=== PATIENT | male | born 1940 | race Caucasian/White ===

== ENCOUNTER 2024-07-14 14:04 | Inpatient (IN) | payer OTHER ==
[2024-07-14] MEDS: SODIUM CHLORIDE 0.9% 500 ML INFUS.BAG IV ONE (16:40)
[2024-07-14 17:51] LABS: BASO % 0.5 % (0-2.0); HEMATOCRIT 45.3 % (35.4-49); HEMOGLOBIN 15.3 GM/dL (11.7-16.9); LYMPH % 2.7 % (8-40); MCH 30.5 pg (25.7-33.7); MCHC 33.7 g/dl (32.0-35.9); MEAN CELL VOLUME 90.5 fl (80-96); MEAN PLT VOLUME 8.9 fl (7.5-11.1); MONO % 6.5 % (3.8-10.2); NEUT % 90.3 % (42.8-82.8); PLATELET COUNT 338 10^3/uL (134-434); RBC 5.01 M/mm3 (4.00-5.60); VENOUS BASE EXCESS -8.3 mmol/L (-2-2); VENOUS O2 SATURATION 55.2 % (70-80); VENOUS PCO2 37.9 mmHg (38-52); VENOUS PH 7.284 (7.310-7.410)
[2024-07-14 18:13] LABS: POTASSIUM 5.2 mmol/L (3.5-5.1)
[2024-07-14 18:14] LABS: ALBUMIN 2.6 g/dl (3.4-5.0); BLOOD UREA NITROGEN 103.4 mg/dL (7-18); CALCIUM 9.3 mg/dL (8.5-10.1)
[2024-07-14 18:18] LABS: CREATININE 2.4 mg/dL (0.55-1.3)
[2024-07-14 18:20] LABS: BILIRUBIN,TOTAL 0.7 mg/dL (0.2-1)
[2024-07-14 18:23] LABS: ANISOCYTOSIS 2+; LACTIC ACID 2.4 mmol/L (0.4-2.0); MACROCYTOSIS 0; OVALOCYTE 1+
[2024-07-14] MEDS ORDERED: PIPERACILLIN/TAZOB 4.5 GM 4.5 GM/100 ML BAG IVPB ONE (18:27)
[2024-07-14] MEDS: PIPERACILLIN/TAZOB 4.5 GM 4.5 GM in DEXTROSE 5%-WATER 100 ML IVPB ONE (20:04)
[2024-07-14] MEDS: VANCOMYCIN PREMIX 1.5 GM 1,500 MG/300 ML BAG IVPB ONE (22:34)
[2024-07-15] MEDS: VANCOMYCIN HCL 1,500 MG in DEXTROSE 5%-WATER - 500 ML IVPB ONE (00:09)
[2024-07-15 01:24] LABS: EPI CELLS 0 /uL (0-25.1); HYALINE CASTS 0 /uL (0-3.1); URINE APPEARANCE CLEAR; URINE BACTERIA 0 /uL (0-1359); URINE BILIRUBIN NEGATIVE (NEGATIVE); URINE COLOR YELLOW; URINE GLUCOSE (UA) NEGATIVE (NEGATIVE); URINE KETONE NEGATIVE (NEGATIVE); URINE LEUK ESTERASE NEGATIVE (NEGATIVE); URINE NITRITE NEGATIVE (NEGATIVE); URINE PROTEIN NEGATIVE (NEGATIVE); URINE RBC 84 /uL (0-23.9); URINE UROBILINOGEN 0.2 mg/dL (0.2-1.0); URINE WBC 1 /uL (0-25.8)
[2024-07-15 01:58] LABS: HEMATOCRIT 44.5 % (35.4-49); HEMOGLOBIN 14.5 GM/dL (11.7-16.9); MCH 29.8 pg (25.7-33.7); MCHC 32.5 g/dl (32.0-35.9); MEAN CELL VOLUME 91.4 fl (80-96); MEAN PLT VOLUME 9.1 fl (7.5-11.1); PLATELET COUNT 278 10^3/uL (134-434); RBC 4.87 M/mm3 (4.00-5.60); RDW 16.3 % (11.9-15.9)
[2024-07-15 02:13] LABS: WHITE BLOOD COUNT 38.7 K/mm3 (4.0-10.0)
[2024-07-15 03:15] LABS: ANISOCYTOSIS 0; MACROCYTOSIS 0; OVALOCYTE 1+
[2024-07-15] MEDS: SODIUM CHLORIDE 1,000 ML IV STA ×2 (05:04→11:34)
[2024-07-15] MEDS: DEXTROSE 5%-0.45% SALINE 1,000 ML IV SCH ×2 (07:24→16:28)
[2024-07-15 08:07] LABS: HEMATOCRIT 41.5 % (35.4-49); HEMOGLOBIN 13.3 GM/dL (11.7-16.9); MCH 29.6 pg (25.7-33.7); MCHC 32.1 g/dl (32.0-35.9); MEAN CELL VOLUME 92.2 fl (80-96); MEAN PLT VOLUME 9.6 fl (7.5-11.1); PLATELET COUNT 288 10^3/uL (134-434); RBC 4.49 M/mm3 (4.00-5.60)
[2024-07-15 08:17] LABS: WHITE BLOOD COUNT 31.7 K/mm3 (4.0-10.0)
[2024-07-15 08:20] LABS: POTASSIUM 4.5 mmol/L (3.5-5.1)
[2024-07-15 08:24] LABS: BLOOD UREA NITROGEN 92.7 mg/dL (7-18); CALCIUM 8.8 mg/dL (8.5-10.1)
[2024-07-15 08:27] LABS: CREATININE 2.2 mg/dL (0.55-1.3)
[2024-07-15 08:28] LABS: BILIRUBIN,TOTAL 0.8 mg/dL (0.2-1)
[2024-07-15 08:31] LABS: LACTIC ACID 2.2 mmol/L (0.4-2.0)
[2024-07-15 09:34] LABS: ANISOCYTOSIS 0; MACROCYTOSIS 0
[2024-07-15] MEDS ORDERED: PIPERACILLIN/TAZOB 4.5 GM 4.5 GM/100 ML BAG IVPB ONE (09:48)
[2024-07-15] MEDS: PIPERACILLIN/TAZOB 4.5 GM 4.5 GM in DEXTROSE 5%-WATER 100 ML IVPB SCH ×2 (09:58→16:39)
[2024-07-15] MEDS: SODIUM CHLORIDE 500 ML IV STA (14:42)
[2024-07-15] MEDS ORDERED: ACETAMINOPHEN INJECTION 100 ML ONE (16:20)
[2024-07-15] MEDS: ACETAMINOPHEN 1000 MG/100 ML BAG IVPB PRN (16:23)
[2024-07-15] MEDS ORDERED: VANCOMYCIN/WATER FOR INJ (PEG) 1,000 MG/200 ML BAG IVPB SCH (18:00)
[2024-07-15] MEDS ORDERED: PIPERACILLIN/TAZOB 3.375 GM 3.375 GM/50 ML BAG IVPB ONE (18:02)
[2024-07-15] MEDS: PIPERACILLIN/TAZOB 3.375 GM 3.375 GM in DEXTROSE 5%-WATER - 50 ML IVPB SCH (18:08)
[2024-07-15 21:23] LABS: HEMATOCRIT 40.6 % (35.4-49); HEMOGLOBIN 13.4 GM/dL (11.7-16.9); MCH 30.1 pg (25.7-33.7); MEAN CELL VOLUME 91.2 fl (80-96); MEAN PLT VOLUME 9.2 fl (7.5-11.1); PLATELET COUNT 290 10^3/uL (134-434); RBC 4.46 M/mm3 (4.00-5.60); RDW 16.6 % (11.9-15.9); WHITE BLOOD COUNT 23.1 K/mm3 (4.0-10.0)
[2024-07-15 21:50] LABS: POTASSIUM 3.8 mmol/L (3.5-5.1)
[2024-07-15 21:52] LABS: BLOOD UREA NITROGEN 78.2 mg/dL (7-18); CALCIUM 8.5 mg/dL (8.5-10.1)
[2024-07-15 21:55] LABS: CREATININE 1.8 mg/dL (0.55-1.3)
[2024-07-15] MEDS ORDERED: VANCOMYCIN 1,000 MG in DEXTROSE 5%-WATER - 250 ML IVPB SCH (22:00)
[2024-07-15 22:54] LABS: ANISOCYTOSIS 2+; MACROCYTOSIS 0
[2024-07-16 08:43] LABS: POTASSIUM 3.5 mmol/L (3.5-5.1)
[2024-07-16 08:46] LABS: ALBUMIN 1.8 g/dl (3.4-5.0); BLOOD UREA NITROGEN 66.1 mg/dL (7-18); CALCIUM 8.7 mg/dL (8.5-10.1)
[2024-07-16 08:50] LABS: CREATININE 1.6 mg/dL (0.55-1.3); PHOSPHOROUS 3.4 mg/dL (2.5-4.9)
[2024-07-16 08:52] LABS: BILIRUBIN,TOTAL 0.5 mg/dL (0.2-1)
[2024-07-16] MEDS: D5-1/2NS+10 MEQ KCL - 10 MEQ/1,000 ML INFUS.BAG IV SCH (17:44)
[2024-07-16] MEDS: HEPARIN NA (PORCINE) 5,000 UNITS/ML 1ML VIAL SQ SCH (21:59)
[2024-07-17 09:44] LABS: POTASSIUM 3.9 mmol/L (3.5-5.1)
[2024-07-17 09:47] LABS: ALBUMIN 1.5 g/dl (3.4-5.0); CALCIUM 8.6 mg/dL (8.5-10.1)
[2024-07-17 09:48] LABS: BLOOD UREA NITROGEN 58.7 mg/dL (7-18)
[2024-07-17 09:50] LABS: CREATININE 1.5 mg/dL (0.55-1.3)
[2024-07-17 09:52] LABS: BILIRUBIN,TOTAL 0.5 mg/dL (0.2-1); TOT PROT 4.5 g/dl (6.4-8.2)
[2024-07-17 12:14] VITALS: BMI 23.1
[2024-07-17 13:06] LABS: HEMATOCRIT 38.6 % (35.4-49); HEMOGLOBIN 12.7 GM/dL (11.7-16.9); MCH 29.8 pg (25.7-33.7); MCHC 32.8 g/dl (32.0-35.9); MEAN CELL VOLUME 90.9 fl (80-96); MEAN PLT VOLUME 9.8 fl (7.5-11.1); PLATELET COUNT 309 10^3/uL (134-434); RBC 4.25 M/mm3 (4.00-5.60); RDW 16.4 % (11.9-15.9); WHITE BLOOD COUNT 24.9 K/mm3 (4.0-10.0)
[2024-07-17 13:27] LABS: ANISOCYTOSIS 0; MACROCYTOSIS 0
[2024-07-17 13:45] LABS: POTASSIUM 3.6 mmol/L (3.5-5.1)
[2024-07-17 13:47] LABS: BLOOD UREA NITROGEN 55.2 mg/dL (7-18)
[2024-07-17 14:34] LABS: CREATININE 1.4 mg/dL (0.55-1.3)
[2024-07-17] MEDS: POTASSIUM CHLORIDE 10 MEQ in DEXTROSE 5%-WATER - 1,000 ML IV SCH (18:02)
[2024-07-18 08:52] LABS: CHLORIDE 112 mmol/L (98-107); POTASSIUM 4.7 mmol/L (3.5-5.1); SODIUM 136 mmol/L (136-145)
[2024-07-18 08:54] LABS: CALCIUM 7.7 mg/dL (8.5-10.1)
[2024-07-18 08:55] LABS: ALBUMIN 1.2 g/dl (3.4-5.0); ANION GAP 5 mmol/L (4-13); BLOOD UREA NITROGEN 52.5 mg/dL (7-18); CO2 19 mmol/L (21-32)
[2024-07-18 08:58] LABS: CREATININE 1.5 mg/dL (0.55-1.3); SGOT/AST 225 U/L (15-37); SGPT/ALT 186 U/L (13-61)
[2024-07-18 08:59] LABS: BILIRUBIN,TOTAL 0.4 mg/dL (0.2-1); TOT PROT 3.7 g/dl (6.4-8.2)
[2024-07-18 09:01] LABS: ALK PHOS 230 U/L (45-117)
[2024-07-18 09:06] LABS: GLUCOSE,RANDOM 688 mg/dL (74-106)
[2024-07-18 09:26] LABS: BASO % 0.1 % (0-2.0); EOS % 1.2 % (0-4.5); LYMPH % 8.8 % (8-40); MCH 29.2 pg (25.7-33.7); MCHC 28.9 g/dl (32.0-35.9); MEAN CELL VOLUME 101.1 fl (80-96); MEAN PLT VOLUME 10.4 fl (7.5-11.1); MONO % 4.8 % (3.8-10.2); NEUT % 85.1 % (42.8-82.8); PLATELET COUNT 182 10^3/uL (134-434); RBC 3.07 M/mm3 (4.00-5.60); RDW 18.9 % (11.9-15.9)
[2024-07-18 09:29] LABS: HEMATOCRIT 30.6 % (35.4-49)
[2024-07-18 09:38] LABS: ANISOCYTOSIS 0; MACROCYTOSIS 1+
[2024-07-18] MEDS: levETIRAcetam 500 MG/5 ML INJECTION VIAL IVPB SCH (11:24)
[2024-07-18] MEDS: ACETAMINOPHEN 1000 MG/100 ML BAG IVPB PRN (11:54)
[2024-07-18 14:10] LABS: BASO % 0.3 % (0-2.0); EOS % 1.1 % (0-4.5); HEMATOCRIT 33.5 % (35.4-49); HEMOGLOBIN 10.6 GM/dL (11.7-16.9); LYMPH % 14.9 % (8-40); MCH 29.1 pg (25.7-33.7); MCHC 31.5 g/dl (32.0-35.9); MEAN CELL VOLUME 92.2 fl (80-96); MEAN PLT VOLUME 9.7 fl (7.5-11.1); MONO % 3.8 % (3.8-10.2); NEUT % 79.9 % (42.8-82.8); PLATELET COUNT 293 10^3/uL (134-434); RBC 3.63 M/mm3 (4.00-5.60); RDW 16.6 % (11.9-15.9); WHITE BLOOD COUNT 22.3 K/mm3 (4.0-10.0)
[2024-07-18 14:28] LABS: BLOOD UREA NITROGEN 63.6 mg/dL (7-18)
[2024-07-18 14:30] LABS: ALBUMIN 1.6 g/dl (3.4-5.0)
[2024-07-18 14:31] LABS: ANISOCYTOSIS 0; CREATININE 1.4 mg/dL (0.55-1.3); MACROCYTOSIS 0
[2024-07-18 14:33] LABS: BILIRUBIN,TOTAL 0.7 mg/dL (0.2-1); TOT PROT 4.8 g/dl (6.4-8.2)
[2024-07-18 14:46] LABS: POTASSIUM 3.8 mmol/L (3.5-5.1)
[2024-07-19 08:43] LABS: HEMATOCRIT 36.6 % (35.4-49); HEMOGLOBIN 12.1 GM/dL (11.7-16.9); MCH 30.2 pg (25.7-33.7); MEAN CELL VOLUME 91.5 fl (80-96); MEAN PLT VOLUME 9.7 fl (7.5-11.1); PLATELET COUNT 220 10^3/uL (134-434); RDW 17.1 % (11.9-15.9); WHITE BLOOD COUNT 20.6 K/mm3 (4.0-10.0)
[2024-07-19 08:51] LABS: POTASSIUM 4.5 mmol/L (3.5-5.1)
[2024-07-19 08:57] LABS: CALCIUM 8.5 mg/dL (8.5-10.1)
[2024-07-19 08:58] LABS: ALBUMIN 1.5 g/dl (3.4-5.0); BLOOD UREA NITROGEN 54.5 mg/dL (7-18)
[2024-07-19 08:59] LABS: CREATININE 1.2 mg/dL (0.55-1.3)
[2024-07-19 09:01] LABS: BILIRUBIN,TOTAL 0.6 mg/dL (0.2-1); TOT PROT 4.6 g/dl (6.4-8.2)
[2024-07-19 09:47] LABS: ANISOCYTOSIS 0; HELMET CELLS 0; HOWELL-JOLLY BODIES 0; MACROCYTOSIS 0; OVALOCYTE 0; ROULEAU 0; SICKELED CELLS 0; TARGET CELLS 0; TEAR DROP CELLS 0; TOXIC GRANULATION 0
[2024-07-20 08:26] LABS: HEMATOCRIT 35.7 % (35.4-49); HEMOGLOBIN 11.9 GM/dL (11.7-16.9); MCH 30.5 pg (25.7-33.7); MCHC 33.4 g/dl (32.0-35.9); MEAN CELL VOLUME 91.3 fl (80-96); MEAN PLT VOLUME 9.7 fl (7.5-11.1); PLATELET COUNT 196 10^3/uL (134-434); RBC 3.91 M/mm3 (4.00-5.60); WHITE BLOOD COUNT 22.8 K/mm3 (4.0-10.0)
[2024-07-20 08:41] LABS: POTASSIUM 5.3 mmol/L (3.5-5.1)
[2024-07-20 08:47] LABS: ALBUMIN 1.6 g/dl (3.4-5.0); BLOOD UREA NITROGEN 50.4 mg/dL (7-18); CALCIUM 8.8 mg/dL (8.5-10.1)
[2024-07-20 08:52] LABS: BILIRUBIN,TOTAL 0.9 mg/dL (0.2-1); TOT PROT 4.9 g/dl (6.4-8.2)
[2024-07-20] MEDS: PANTOPRAZOLE SODIUM 40 MG VIAL IVPUSH SCH (09:32)
[2024-07-20 10:02] LABS: ANISOCYTOSIS 0; HELMET CELLS 0; HOWELL-JOLLY BODIES 0; MACROCYTOSIS 0; OVALOCYTE 0; ROULEAU 0; SICKELED CELLS 0; TARGET CELLS 0; TEAR DROP CELLS 0; TOXIC GRANULATION 0
[2024-07-20] MEDS: DEXTROSE 5%-0.45% SALINE 1,000 ML IV SCH (17:36)
[2024-07-21 11:57] LABS: HEMATOCRIT 35.9 % (35.4-49); HEMOGLOBIN 11.5 GM/dL (11.7-16.9); MCH 29.7 pg (25.7-33.7); MEAN CELL VOLUME 92.6 fl (80-96); PLATELET COUNT 143 10^3/uL (134-434); RBC 3.87 M/mm3 (4.00-5.60); RDW 16.6 % (11.9-15.9)
[2024-07-21 12:15] LABS: BLOOD UREA NITROGEN 29.8 mg/dL (7-18); CALCIUM 8.4 mg/dL (8.5-10.1)
[2024-07-21 12:19] LABS: CREATININE 0.9 mg/dL (0.55-1.3)
[2024-07-21 12:22] LABS: ANISOCYTOSIS 0; MACROCYTOSIS 0
[2024-07-21 22:29] LABS: ARTERIAL BLD GAS O2 SATURATION 96.4 % (95-98); ARTERIAL BLOOD GAS BASE EXCESS -4.1 mmol/L (-2-2); ARTERIAL BLOOD GAS PO2 79.9 mmHg (80-100)
[2024-07-21 22:39] LABS: ALLENS TEST POSITIVE
[2024-07-21] MEDS: ACETAMINOPHEN 1000 MG/100 ML BAG IVPB ONE (22:44)
[2024-07-21 23:11] LABS: EPI CELLS 7 /uL (0-25.1); HYALINE CASTS 1 /uL (0-3.1); PH,URINE 5.5 (5.0-8.0); URINE APPEARANCE CLOUDY; URINE BACTERIA 2 /uL (0-1359); URINE BILIRUBIN NEGATIVE (NEGATIVE); URINE COLOR DK YELLOW; URINE GLUCOSE (UA) NEGATIVE (NEGATIVE); URINE KETONE NEGATIVE (NEGATIVE); URINE LEUK ESTERASE TRACE (NEGATIVE); URINE NITRITE NEGATIVE (NEGATIVE); URINE PROTEIN 1+ (NEGATIVE); URINE UROBILINOGEN 0.2 mg/dL (0.2-1.0); URINE WBC 43 /uL (0-25.8)
[2024-07-21 23:14] LABS: URINE RBC 408.3 /uL (0-23.9)
[2024-07-22] MEDS: MEROPENEM 1 GM in DEXTROSE 5%-WATER 100 ML IVPB ONE (02:06)
[2024-07-22] MEDS: VANCOMYCIN/WATER FOR INJ (PEG) 1,000 MG/200 ML BAG IVPB ONE (02:06)
[2024-07-22] MEDS: FENTANYL CITRATE/PF 50 MCG/ML VIAL IVPUSH ONE (02:24)
[2024-07-22 06:53] LABS: HEMATOCRIT 33.2 % (35.4-49); HEMOGLOBIN 10.6 GM/dL (11.7-16.9); MCH 29.4 pg (25.7-33.7); MEAN CELL VOLUME 91.8 fl (80-96); MEAN PLT VOLUME 9.7 fl (7.5-11.1); PLATELET COUNT 194 10^3/uL (134-434); RBC 3.61 M/mm3 (4.00-5.60)
[2024-07-22 07:00] LABS: INR 2.49 (0.83-1.09); PROTHROMBIN TIME (PATIENT) 27.9 SEC (9.7-13.0)
[2024-07-22 07:10] LABS: POTASSIUM 3.8 mmol/L (3.5-5.1)
[2024-07-22 07:17] LABS: ALBUMIN 1.4 g/dl (3.4-5.0); BLOOD UREA NITROGEN 31.8 mg/dL (7-18); CALCIUM 7.8 mg/dL (8.5-10.1); MAGNESIUM 1.4 mg/dL (1.8-2.4)
[2024-07-22 07:18] LABS: PHOSPHOROUS 2.7 mg/dL (2.5-4.9)
[2024-07-22 07:24] LABS: TOT PROT 4.4 g/dl (6.4-8.2); WHITE BLOOD COUNT 38.9 K/mm3 (4.0-10.0)
[2024-07-22 09:12] LABS: ANISOCYTOSIS 2+; MACROCYTOSIS 0
[2024-07-22] MEDS: MUPIROCIN 2% TOPICAL OINTMENT FOR DECOLONIZATION NS SCH (09:25)
[2024-07-22] MEDS: DEXAMETHASONE SOD PHOSPHATE 4 MG/1 ML VIAL IVPUSH SCH (11:02)
[2024-07-22] MEDS: REMDESIVIR 200 MG in SODIUM CHLORIDE 250 ML IVPB ONE (13:50)
[2024-07-22] MEDS: PIPERACILLIN/TAZOB 3.375 GM 3.375 GM in DEXTROSE 5%-WATER - 50 ML IVPB SCH (13:50)
[2024-07-22] MEDS: CHLORHEXIDINE GLUCONATE 4% CLEANSER FOR DECOLONIZATION TP SCH (21:37)
[2024-07-23] MEDS: ACETAMINOPHEN 1000 MG/100 ML BAG IVPB PRN (03:07)
[2024-07-23 06:47] LABS: HEMATOCRIT 30.1 % (35.4-49); HEMOGLOBIN 9.6 GM/dL (11.7-16.9); MCH 29.6 pg (25.7-33.7); MCHC 32.1 g/dl (32.0-35.9); MEAN CELL VOLUME 92.3 fl (80-96); MEAN PLT VOLUME 10.4 fl (7.5-11.1); PLATELET COUNT 208 10^3/uL (134-434); RBC 3.26 M/mm3 (4.00-5.60); RDW 16.1 % (11.9-15.9); WHITE BLOOD COUNT 49.9 K/mm3 (4.0-10.0)
[2024-07-23 06:59] LABS: POTASSIUM 3.8 mmol/L (3.5-5.1)
[2024-07-23 07:04] LABS: ALBUMIN 1.4 g/dl (3.4-5.0)
[2024-07-23 07:05] LABS: MAGNESIUM 1.4 mg/dL (1.8-2.4)
[2024-07-23 07:09] LABS: TOT PROT 4.6 g/dl (6.4-8.2)
[2024-07-23 07:37] LABS: BILIRUBIN,TOTAL 0.6 mg/dL (0.2-1)
[2024-07-23] MEDS ORDERED: ALBUTEROL SO4 2.5/IPRATROPIUM 0.5 INH SOL 3 ML VIAL.NEB. NEB PRN (10:17)
[2024-07-23] MEDS: ALBUTEROL SO4 2.5/IPRATROPIUM 0.5 INH SOL 3 ML VIAL.NEB. NEB SCH (11:55)
[2024-07-23] MEDS ORDERED: REMDESIVIR 100 MG in SODIUM CHLORIDE 250 ML IVPB SCH (12:00)
[2024-07-23] MEDS: REMDESIVIR 100 MG in SODIUM CHLORIDE 250 ML IVPB SCH (12:14)
[2024-07-23] MEDS: AMINO ACIDS 4.25%/D5W 1,000 ML IV SCH (14:31)
[2024-07-23] MEDS: MAGNESIUM SULFATE IN WATER 2 GM/50 ML IVPB IVPB ONE (23:09)
[2024-07-24 08:32] LABS: HEMATOCRIT 24.1 % (35.4-49); HEMOGLOBIN 7.9 GM/dL (11.7-16.9); MCH 29.7 pg (25.7-33.7); MCHC 32.8 g/dl (32.0-35.9); MEAN CELL VOLUME 90.4 fl (80-96); MEAN PLT VOLUME 10.1 fl (7.5-11.1); PLATELET COUNT 249 10^3/uL (134-434); RBC 2.66 M/mm3 (4.00-5.60); RDW 16.3 % (11.9-15.9)
[2024-07-24 08:42] LABS: WHITE BLOOD COUNT 39.1 K/mm3 (4.0-10.0)
[2024-07-24 08:48] LABS: POTASSIUM 3.6 mmol/L (3.5-5.1)
[2024-07-24 08:50] LABS: ALBUMIN 1.2 g/dl (3.4-5.0); CALCIUM 7.8 mg/dL (8.5-10.1)
[2024-07-24 08:51] LABS: BLOOD UREA NITROGEN 36.8 mg/dL (7-18)
[2024-07-24 08:54] LABS: CREATININE 0.8 mg/dL (0.55-1.3); PHOSPHOROUS 2.2 mg/dL (2.5-4.9)
[2024-07-24 08:55] LABS: BILIRUBIN,TOTAL 0.4 mg/dL (0.2-1)
[2024-07-24] MEDS: THIAMINE HCL 200 MG/2 ML VIAL IVPB SCH (10:06)
[2024-07-24 10:08] LABS: ANISOCYTOSIS 3+; MACROCYTOSIS 0
[2024-07-25 08:00] LABS: CHLORIDE 120 mmol/L (98-107); POTASSIUM 3.3 mmol/L (3.5-5.1); SODIUM 147 mmol/L (136-145)
[2024-07-25 08:04] LABS: ANION GAP 4 mmol/L (4-13); BLOOD UREA NITROGEN 39.2 mg/dL (7-18); CO2 22 mmol/L (21-32); GLUCOSE,RANDOM 111 mg/dL (74-106)
[2024-07-25 08:06] LABS: MAGNESIUM 1.6 mg/dL (1.8-2.4); SGOT/AST 35 U/L (15-37); SGPT/ALT 36 U/L (13-61)
[2024-07-25 08:07] LABS: CREATININE 0.5 mg/dL (0.55-1.3)
[2024-07-25 08:09] LABS: PHOSPHOROUS 1.9 mg/dL (2.5-4.9); TOT PROT 3.3 g/dl (6.4-8.2)
[2024-07-25 08:11] LABS: MCH 28.8 pg (25.7-33.7); MCHC 31.2 g/dl (32.0-35.9); MEAN CELL VOLUME 92.4 fl (80-96); MEAN PLT VOLUME 9.7 fl (7.5-11.1); PLATELET COUNT 289 10^3/uL (134-434); RBC 2.27 M/mm3 (4.00-5.60)
[2024-07-25 08:14] LABS: ALK PHOS 164 U/L (45-117); CALCIUM 6.7 mg/dL (8.5-10.1)
[2024-07-25 08:18] LABS: WHITE BLOOD COUNT 30.9 K/mm3 (4.0-10.0)
[2024-07-25 08:19] LABS: HEMOGLOBIN 6.5 GM/dL (11.7-16.9)
[2024-07-25 08:52] LABS: ANISOCYTOSIS 2+; MACROCYTOSIS 0
[2024-07-25] MEDS: MAGNESIUM 2GM/50ML STERILE WATER IVPB IVPB ONE (09:12)
[2024-07-25] MEDS: KCL 10 MEQ IVPB 10 MEQ/100 ML INFUS.BAG IVPB SCH (09:13)
[2024-07-25] MEDS: DEXAMETHASONE SOD PHOSPHATE 4 MG/1 ML VIAL IVPUSH SCH (09:18)
[2024-07-25] MEDS: POTASSIUM PHOSPHATE 15 MM in SODIUM CHLORIDE 100 ML IVPB ONE (09:36)
[2024-07-25] MEDS: MULTIVIT INJ. ADULT COMBO WITH VIT K 1 COMBO 10 ML VIAL IV SCH (15:28)
[2024-07-25] MEDS: POTASSIUM CHLORIDE 20 MEQ in AMINO ACIDS 4.25%/D5W 2,000 ML IV SCH (15:28)
[2024-07-25] MEDS: MORPHINE SULFATE/0.9% NACL/PF 100 MG/100 ML BAG IVPB SCH (15:58)
[2024-07-26 10:05] VITALS: PULSE 95
[2024-07-26 12:40] VITALS: BP 144/59; RESP 10; TEMP 98.4
[2024-07-26] MEDS: SODIUM CHLORIDE 1,000 ML IV SCH (15:00)
[2024-07-26] MEDS: MORPHINE SULFATE/0.9% NACL/PF 100 MG/100 ML BAG IVPB SCH (15:59)
[2024-07-26] MEDS ORDERED: ALBUTEROL SO4 2.5/IPRATROPIUM 0.5 INH SOL 3 ML VIAL.NEB. NEB SCH (16:00)
[2024-07-26] MEDS: SCOPOLAMINE HYDROBROMIDE 1 PATCH PATCH.TD72 TD SCH (16:06)
== END 2024-07-27 06:00 | disposition expired | DRG 871 ==
LOC: JER 14:04 → JERBED 07-15 03:29 → J4W 07-15 19:38 → JERBED 07-15 19:38 → J4W 07-15 20:17 → JICU 07-22 00:49 → J6S 07-26 14:49
PROVIDERS: ADMIT Student in an Organized Health Care Education/Training Program; ATTEND Internal Medicine
PROC: XW033E5 Introduction of Remdesivir Anti-infective into Peripheral Vein, Percutaneous Approach, New Technology Group 5 (ICD-10-PCS; principal; 2024-07-22)
PROC: 05HM33Z Insertion of Infusion Device into Right Internal Jugular Vein, Percutaneous Approach (ICD-10-PCS; 2024-07-22)
PROC: B543ZZA Ultrasonography of Right Jugular Veins, Guidance (ICD-10-PCS; 2024-07-22)
PROC: 30233N1 Transfusion of Nonautologous Red Blood Cells into Peripheral Vein, Percutaneous Approach (ICD-10-PCS; 2024-07-25)
DX: A41.9 Sepsis, unspecified organism (principal); I81 Portal vein thrombosis; J96.01 Acute respiratory failure with hypoxia; U07.1 COVID-19; J69.0 Pneumonitis due to inhalation of food and vomit; J12.82 Pneumonia due to coronavirus disease 2019; K92.2 Gastrointestinal hemorrhage, unspecified; N17.9 Acute kidney failure, unspecified; E87.0 Hyperosmolality and hypernatremia; F02.80 Dementia in other diseases classified elsewhere, unspecified severity, without behavioral disturbance, psychotic disturbance, mood disturbance, and anxiety; E78.5 Hyperlipidemia, unspecified; G40.909 Epilepsy, unspecified, not intractable, without status epilepticus; G30.9 Alzheimer's disease, unspecified; I10 Essential (primary) hypertension; N40.0 Benign prostatic hyperplasia without lower urinary tract symptoms
CPT/HCPCS: 0241U-QW; 36415; 36430; 36600; 71045-TC-FY; 74176-TC; 80048; 80053; 81003; 82272; 82803; 82962; 83605; 83735; 84100; 84484; 85025; 85027; 85610; 86140; 86850; 86900; 86901; 86922; 87040; 87070; 87077; 87086; 87186; 87205; 87493; 93005; 93010; 94640; 94660; 99285-25; J0131; J0248; J1644; P9038; P9058